=== PATIENT | male | born 1955 | race Caucasian/White ===

== ENCOUNTER 2021-04-19 14:03 | Emergency (ER) | payer MEDICARE ==
[~2021-04-19] VITALS: Ht 193 cm; Wt 81.6 kg
[~2021-04-19 14:03] MED LIST: PERCOCET 5-3251 EACH PO
[2021-04-19 16:31] LABS: HEMOGLOBIN 13.8 gm/dl (14.0-17.5); RED BLOOD COUNT 4.52 M/UL (4.20-5.50); WHITE BLOOD COUNT 10.7 K/UL (4.5-11.0)
[2021-04-19 17:10] LABS: BUN/CREATININE RATIO 14 (0-10)
[2021-04-19] MEDS ORDERED: DECADRON6 MG PO (17:43)
== END 2021-04-19 19:40 | disposition home or self-care (01) ==
LOC: ER1 14:03
PROVIDERS: Physician Assistant Medical
DX: Z23 Encounter for immunization (principal); U07.1 COVID-19; I10 Essential (primary) hypertension
CPT/HCPCS: 71045; 80053; 85025; 99283; M0243; U0002

== ENCOUNTER 2021-08-23 09:35 | Inpatient (IN) | payer MEDICARE ==
[~2021-08-23] VITALS: Ht 190.5 cm; Wt 80.9 kg
[~2021-08-23 09:35] MED LIST changes: +DECADRON6 MG PO
[2021-08-23 10:55] LABS: HEMOGLOBIN 14.2 gm/dl (14.0-17.5); RED BLOOD COUNT 4.76 M/UL (4.20-5.50); WHITE BLOOD COUNT 8.8 K/UL (4.5-11.0)
[2021-08-23 11:34] LABS: BUN/CREATININE RATIO 20 (0-10)
[2021-08-23] MEDS ORDERED: AMLODIPINE BESY10 MG PO (19:53)
[2021-08-24 02:07] LABS: RED BLOOD COUNT 4.71 M/UL (4.20-5.50); WHITE BLOOD COUNT 8.9 K/UL (4.5-11.0)
[2021-08-25 04:29] LABS: HEMOGLOBIN 14.6 gm/dl (14.0-17.5); RED BLOOD COUNT 4.95 M/UL (4.20-5.50); WHITE BLOOD COUNT 8.9 K/UL (4.5-11.0)
[2021-08-25] MEDS ORDERED: ATORVASTATIN CA20 MG PO (18:25)
[2021-08-25] MEDS ORDERED: FUROSEMIDE40 MG PO (18:25)
[2021-08-25] MEDS ORDERED: CARVEDILOL3.125 MG PO (18:25)
[2021-08-25] MEDS ORDERED: ENTRESTO 24 MG1 EACH PO (18:25)
[2021-08-25] MEDS ORDERED: ASPIRIN EC81 MG PO (18:33)
[2021-08-25] MEDS ORDERED: K-TAB ER10 MEQ PO (18:36)
--- NOTE | 2021-08-25 20:52 | NUR ---
THE PT WAS DISCHARGED TO HOME SELF CARE PER MD ORDER ACCOMPANIED BY HIS FRIEND. DISCHARGE INSTRUCTIONS FOR CATH SITE CARE GIVEN TO PT AND DISCHARGE TEACHING DONE WITH OPPORTUNITY TO ASK QUESTIONS. PT VERBALIZED UNDERSTANDING OF UPDATED MEDICATION LIST AND FOLLOW UP APPOINTMENTS. PRESCRIPTIONS, ZOLL LIFEVEST EQUIPMENT BOX AND BELONGINGS SENT WITH PT. IV SITE TO LAC REMOVED CATH TIP INTACT.
== END 2021-08-25 20:30 | disposition home or self-care (01) | DRG 286 ==
LOC: ER1 09:35 → CDU 12:53 → PROG CARE 12:53
PROVIDERS: Internal Medicine Cardiovascular Disease; Physician Assistant; ADMIT Internal Medicine
PROC: B24BZZZ Ultrasonography of Heart with Aorta (ICD-10-PCS; 2021-08-23)
PROC: 4A023N7 Measurement of Cardiac Sampling and Pressure, Left Heart, Percutaneous Approach (ICD-10-PCS; principal; 2021-08-25)
PROC: B2111ZZ Fluoroscopy of Multiple Coronary Arteries using Low Osmolar Contrast (ICD-10-PCS; 2021-08-25)
DX: I13.0 Hypertensive heart and chronic kidney disease with heart failure and stage 1 through stage 4 chronic kidney disease, or unspecified chronic kidney disease (principal); I50.21 Acute systolic (congestive) heart failure; N18.30 Chronic kidney disease, stage 3 unspecified; F15.90 Other stimulant use, unspecified, uncomplicated; Z20.822 Contact with and (suspected) exposure to COVID-19; I08.3 Combined rheumatic disorders of mitral, aortic and tricuspid valves; I25.10 Atherosclerotic heart disease of native coronary artery without angina pectoris; I16.0 Hypertensive urgency; I42.8 Other cardiomyopathies; E87.6 Hypokalemia; Z91.14 Patient's other noncompliance with medication regimen; Z79.82 Long term (current) use of aspirin; Z98.1 Arthrodesis status; Z98.890 Other specified postprocedural states; Z90.49 Acquired absence of other specified parts of digestive tract; Z72.89 Other problems related to lifestyle; Z80.8 Family history of malignant neoplasm of other organs or systems
CPT/HCPCS: ECHO; 36415; 36600; 71045; 80048; 80053; 80307; 82550; 82553; 82803; 83690; 83735; 83874; 83880; 84132; 84484; 85025; 85379; 85730; 93005; 93306; 96372; 96374; 96375; 99152; 99285; C1769; C1894; G0378; J0360; J1644; J1650; J1940; J2250; J3010; Q9965; U0002

== ENCOUNTER 2021-09-13 18:37 | Emergency (ER) | payer MEDICARE ==
[~2021-09-13 18:37] MED LIST changes: +AMLODIPINE BESY10 MG PO; +ASPIRIN EC81 MG PO; +ATORVASTATIN CA20 MG PO; +CARVEDILOL3.125 MG PO; +ENTRESTO 24 MG1 EACH PO; +FUROSEMIDE40 MG PO; +K-TAB ER10 MEQ PO
[2021-09-13 20:33] LABS: HEMOGLOBIN 15.4 gm/dl (14.0-17.5); RED BLOOD COUNT 5.21 M/UL (4.20-5.50)
== END 2021-09-14 02:30 | disposition home or self-care (01) ==
LOC: ER1 18:37
PROVIDERS: Nurse Practitioner
DX: I11.0 Hypertensive heart disease with heart failure (principal); I50.20 Unspecified systolic (congestive) heart failure; I25.2 Old myocardial infarction; Z86.16 Personal history of COVID-19; Z20.822 Contact with and (suspected) exposure to COVID-19
CPT/HCPCS: 71045; 80048; 81001; 82550; 82553; 83874; 83880; 84484; 85025; 93005; 96374; 99285; J1940; U0002

== ENCOUNTER → 2022-01-17 | Outpatient (CLI) | payer MEDICARE | LOC: RAD 13:07 | DX: M54.50 Low back pain, unspecified (principal); Z98.1 Arthrodesis status; M47.816 Spondylosis without myelopathy or radiculopathy, lumbar region | CPT/HCPCS: 72110 ==

== ENCOUNTER → 2022-02-01 | Outpatient (CLI) | payer MEDICARE | LOC: HEART 5 15:30 | DX: I50.22 Chronic systolic (congestive) heart failure (principal); I42.0 Dilated cardiomyopathy; I27.20 Pulmonary hypertension, unspecified; I08.0 Rheumatic disorders of both mitral and aortic valves | CPT/HCPCS: 93306 ==